=== PATIENT | male | born 1950 | race Caucasian/White ===

== ENCOUNTER 2020-02-17 13:36 | Emergency (ER) | payer MEDICARE, OTHER ==
[2020-02-17 13:47] VITALS: RESP 18; TEMP 98.7
[2020-02-17] MEDS ORDERED: SODIUM CHLORIDE 0.9% 1,000 ML IV ONE (14:27)
[2020-02-17] MEDS ORDERED: SODIUM CHLORIDE 0.9% 1,000 ML IV STA (14:27)
[2020-02-17 14:55] LABS: Basophils # (A) 0.1 k/uL (0-0.2); Basophils % (A) 1 %; Eosinophils # (A) 0.1 k/uL (0-0.7); Eosinophils % (A) 2 %; HCT 47.5 % (39.0-53.0); HGB 15.4 gm/dL (13.0-17.5); Lymphocytes # (A) 1.5 k/uL (1.0-4.8); Lymphocytes % (A) 22 %; MCH 30.7 pg (25.0-35.0); MCHC 32.4 g/dL (31.0-37.0); MCV 94.9 fL (80.0-100.0); Mean Platelet Volume 9.3; Monocytes # (A) 0.6 k/uL (0-1.0); Monocytes % (A) 8 %; Neutrophils # (A) 4.7 k/uL (1.3-7.7); Neutrophils % (A) 66 %; Platelet Count 230 k/uL (150-450); RDW 12.1 % (11.5-15.5); WBC 7.1 k/uL (3.8-10.6)
[2020-02-17 15:07] LABS: Calcium 9.8 mg/dL (8.4-10.2); Carbamazepine (Tegretol) 7.3 ug/mL; Magnesium 2.7 mg/dL (1.6-2.3); Potassium 4.9 mmol/L (3.5-5.1); Total Bilirubin 0.4 mg/dL (0.2-1.3); Total Protein 8.3 g/dL (6.3-8.2)
[2020-02-17 15:09] LABS: Valproic Acid (Depakene) 71.4 ug/mL
[2020-02-17 15:11] LABS: Prothrombin Time 9.9 sec (9.0-12.0)
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
--- NOTE | 2020-02-17 15:21 | XR ---
EXAMINATION TYPE: XR chest 2V DATE OF EXAM: 02/17/2020 COMPARISON: None HISTORY: 69 year-old male altered mental status, confusion TECHNIQUE: AP and lateral views FINDINGS: The cardiomediastinal silhouette, aorta, and pulmonary vasculature are within normal limits. Lungs an d pleural spaces are clear. IMPRESSION: No acute cardiopulmonary process.
--- NOTE | 2020-02-17 15:55 | CT ---
EXAMINATION TYPE: CT brain wo con DATE OF EXAM: 02/17/2020 COMPARISON: None HISTORY: ams, weakness, confusion CT DLP: 1162.4 mGycm Automated exposure control for dose reduction was used. FINDINGS: There is no acute intracranial hemorrhage, mass effect, or midline shift identified. The ventricles and sulci are within normal limits in size. The globes are intact and the visualized sinuses are josue ar. No acute hemorrhage or mass effect. Faint periventricular low attenuation likely in the basis of remote microvascular ischemia. IMPRESSION: No acute intracranial hemorrhage, mass effect, or midline shift is seen. If there is concern for acut e intracranial ischemia correlate with MRI as clinically warranted.
[2020-02-17 16:13] LABS: Appearance,Urine Clear (Clear); Bilirubin,Urine Negative (Negative); Blood,Urine Negative (Negative); Color,Urine Yellow; Glucose,Urine (UA) Negative (Negative); Ketones,Urine 1+ (Negative); Leukocyte Esterase,Urine Negative (Negative); Nitrite,Urine Negative (Negative); PH, Urine 5.5 (5.0-8.0); Protein,Urine Trace (Negative); Specific Gravity,Urine 1.019 (1.001-1.035); Urobilinogen,Urine <2.0 mg/dL (<2.0)
[2020-02-17 16:25] LABS: Amphetamine Screen,Urine Not Detected (NotDetected); Barbiturate Screen,Urine Detected (NotDetected); Benzodiazepines Screen,Urine Not Detected (NotDetected); Cocaine Screen,Urine Not Detected (NotDetected); Methadone Screen, Urine Not Detected (NotDetected); Opiate Screen,Urine Not Detected (NotDetected); Oxycodone Screen, Urine Not Detected (NotDetected); Phencyclidine Screen,Urine Not Detected (NotDetected); Tricyclic Antidepressant,Urine Not Detected (NotDetected); Urn Cannabinoid Scrn Not Detected (NotDetected)
[2020-02-17 17:43] VITALS: BP 141/78; PULSE 80
== END 2020-02-17 17:42 | disposition home or self-care (01) ==
LOC: EC 13:36
DX: R44.1 Visual hallucinations (principal); R44.0 Auditory hallucinations; G40.909 Epilepsy, unspecified, not intractable, without status epilepticus; R41.82 Altered mental status, unspecified; R79.89 Other specified abnormal findings of blood chemistry; R82.4 Acetonuria; R78.1 Finding of opiate drug in blood; Z87.891 Personal history of nicotine dependence; G20 Parkinson's disease
CPT/HCPCS: 36415; 70450; 71046; 80053; 80156; 80164; 80306; 81003; 82140; 82550; 83735; 84484; 85025; 85610; 85730; 93005; 96360; 96361; 99285

== ENCOUNTER 2023-06-25 14:06 | Observation (INO) | payer MEDICARE, OTHER ==
--- NOTE | 2023-06-25 14:23 | ED ---
Weakness HPI - General Chief complaint: Weakness Stated complaint: weakness Time Seen by Provider: 06/25/23 14:14 Source: patient, EMS, RN notes reviewed Mode of arrival: EMS Limitations: no limitations - History of Present Illness Initial comments: 73-year-old male with a history of Parkinson's disease and seizure disorder who apparently had forgotten he was to see his doctor today was taken by family was demonstrating generalized weakness and unsteady gait with increased tremors he did apparently fall but no injury reported he also nausea and vomiting yesterday none today no overt complaints of head neck or back pain no fevers chills or sweats reported on arrival here he had 99.0 temperature. Patient denies any decrease oral intake. MD Complaint: generalized weakness - Related Data Home Medications Medication Instructions Recorded Confirmed Atorvastatin [Lipitor] 20 mg PO HS 06/25/23 06/25/23 Carbidopa-Levodopa 10-100 mg 1 tab PO TID@0900,1400,1900 06/25/23 06/25/23 [Sinemet 10-100] Divalproex [Depakote] 250 mg PO DAILY@1400 06/25/23 06/25/23 Divalproex [Depakote] 500 mg PO BID@0900,1900 06/25/23 06/25/23 Gabapentin [Neurontin] 300 mg PO HS 06/25/23 06/25/23 Primidone [Mysoline] 50 mg PO DAILY@1900 06/25/23 06/25/23 Propranolol HCl [Propranolol HCl 160 mg PO DAILY@0900 06/25/23 06/25/23 ER] QUEtiapine FUMARATE [SEROquel] 25 mg PO HS 06/25/23 06/25/23 Ubidecarenone [Co Q-10] 400 mg PO HS 06/25/23 06/25/23 carBAMazepine [carBAMazepine ER] 400 mg PO BID@0900,1700 06/25/23 06/25/23 lisinopriL [Zestril] 10 mg PO HS 06/25/23 06/25/23 rOPINIRole HCL [Requip] 0.25 mg PO BID@0900,1900 06/25/23 06/25/23 Allergies Allergy/AdvReac Type Severity Reaction Status Date / Time No Known Allergies Allergy Verified 06/25/23 16:18 Review of Systems ROS Statement: Those systems with pertinent positive or pertinent negative responses have been documented in the HPI. ROS Other: All systems not noted in ROS Statement are negative. Past Medical History Past Medical History: Seizure Disorder Additional Past Medical History / Comment(s): Prkinsons, History of Any Multi-Drug Resistant Organisms: None Reported Past Surgical History: No Surgical Hx Reported Past Psychological History: No Psychological Hx Reported Past Alcohol Use History: None Reported Past Drug Use History: None Reported General Exam - General Exam Comments Initial Comments: This is a well-developed thin appearing male who is awake alert oriented 4 he does demonstrate tremors consistent with his Parkinson's diagnosis Limitations: no limitations General appearance: alert, in no apparent distress Head exam: Present: atraumatic, normocephalic, normal inspection Eye exam: Present: normal appearance, PERRL, EOMI. Absent: scleral icterus, conjunctival injection, periorbital swelling ENT exam: Present: mucous membranes dry Neck exam: Present: normal inspection, full ROM, other (No genitourinary or bruits). Absent: tenderness, meningismus, lymphadenopathy Respiratory exam: Present: normal lung sounds bilaterally. Absent: respiratory distress, wheezes, rales, rhonchi, stridor Cardiovascular Exam: Present: regular rate, normal rhythm, normal heart sounds. Absent: systolic murmur, diastolic murmur, rubs, gallop, clicks GI/Abdominal exam: Present: soft, normal bowel sounds. Absent: distended, tenderness, guarding, rebound, rigid Extremities exam: Present: normal inspection, full ROM, normal capillary refill. Absent: tenderness, pedal edema, joint swelling, calf tenderness Back exam: Present: normal inspection Neurological exam: Present: alert, oriented X3, CN II-XII intact, other (Tremors noted consistent with the Parkinson's diagnosis) Psychiatric exam: Present: normal affect, normal mood Skin exam: Present: warm, dry, intact, normal color. Absent: rash Course Vital Signs 06/25/23 06/25/23 14:12 18:58 Temperature 99.0 F Pulse Rate 70 78 Respiratory 18 20 Rate Blood Pressure 163/83 137/63 O2 Sat by Pulse 94 L 93 L Oximetry EKG Findings - EKG Results: EKG: interpreted by ERMD (EKG interpreted by me normal sinus rhythm at 60. Interval 194 QRS duration 1025 daily since QTC 390/[address]-T wave change s) Medical Decision Making - Medical Decision Making I did discuss findings with the patient also with family members were present patient and family are uncomfortable going home at this point patient will be admitted with neurological consultation I did discuss the case with Nick fung for Dr. Ingram pt. sent in by a medical professional or institution (, [facility], BIOPHARMACEUTICAL REP, urgent care, hospital, or [facility]...) When possible be specific @ -No Did you speak to anyone other than the patient for history (EMS, parent, family, police, friend...)? What history was obtained from this source @ -Past personal as well as family Did you review nursing and triage notes (agree or disagree)? Why? @ -I reviewed and agree with nursing and triage notes Were old charts reviewed (outside hosp., previous admission, EMS record, old EKG, old radiological studies, urgent care reports/EKG's, [facility] records)? Report findings @ - old charts were reviewed Differential Diagnosis (chest pain, altered mental status, abdominal pain women, abdominal pain men, vaginal bleeding, weakness, fever, dyspnea, syncope, headache, dizziness, GI bleed, back pain, seizure, CVA, palpatations, mental health, musculoskeletal)? @ -Weakness, dehydration, Parkinson's disease exacerbation EKG interpreted by me (3pts min.). @ -As above normal sinus rhythm seen on EKG this was interpreted by me ventricular rate 69 194 QRS duration 105 daily since QTC 390/409 X-rays interpreted by me (1pt min.). @ -Interpreted by me no acute process CT interpreted by me (1pt min.). @ -Interpreted by me no acute process U/S interpreted by me (1pt. min.). @ -None done What testing was considered but not performed or refused? (CT, X-rays, U/S, labs)? Why? @ -None What meds were considered but not given or refused? Why? @ -None Did you discuss the management of the patient with other professionals (professionals i.e. , [facility], BIOPHARMACEUTICAL REP, lab, RT, psych nurse, protective services social worker, mail machine operator, teacher, senior grants officer, pillowcase cutter)? Give summary @ -Nick fung for Dr. Hamilton Was smoking cessation discussed for >3mins.? @ -No Was critical care preformed (if so, how long)? @ -No Were there social determinants of health that impacted care today? How? (Homelessness, low income, unemployed, alcoholism, drug addiction, transportation, low edu. Level, literacy, decrease access to med. care, [facility], rehab)? @ -No Was there de-escalation of care discussed even if they declined (Discuss DNR or withdrawal of care, Hospice)? DNR status @ -No What co-morbidities impacted this encounter? (DM, HTN, Smoking, COPD, CAD, Cancer, CVA, ARF, Chemo, Hep., AIDS, mental health diagnosis, sleep apnea, morbid obesity)? @ -Or concerns disease Was patient admitted / discharged? Hospital course, mention meds given and route, prescriptions, significant lab abnormalities, going to OR and other pertinent info. @ -hospital course was admitted for IV fluids Undiagnosed new problem with uncertain prognosis? @ -No Drug Therapy requiring intensive monitoring for toxicity (Heparin, Nitro, Insulin, Cardizem)? @ -No Were any procedures done? @ -No Diagnosis/symptom? @ -Dehydration, weakness, Parkinson's disease Acute, or Chronic, or Acute on Chronic? @ -Acute on chronic] Uncomplicated (without systemic symptoms) or Complicated (systemic symptoms)? @ -Applicator Side effects of treatment? @ -No Exacerbation, Progression, or Severe Exacerbation? @ -Masturbation Poses a threat to life or bodily function? How? (Chest pain, [place], [place], pneumonia, PE, COPD, DKA, ARF, appy, cholecystitis, CVA, Diverticulitis, Homicidal, Suicidal, threat to staff... and all critical care pts) @ -No - Lab Data Result diagrams: 06/25/23 14:25 06/25/23 14:25 Lab Results 06/25/23 06/25/23 06/25/23 Range/Units 14:25 14:25 14:25 WBC 7.7 (3.8-10.6) k/uL RBC 4.60 (4.30-5.90) m/uL Hgb 15.1 (13.0-17.5) gm/dL Hct 44.3 (39.0-53.0) % MCV 96.1 (80.0-100.0) fL MCH 32.7 (25.0-35.0) pg MCHC 34.0 (31.0-37.0) g/dL RDW 12.7 (11.5-15.5) % Plt Count 213 (150-450) k/uL MPV 8.7 Neutrophils % 70 % Lymphocytes % 19 % Monocytes % 9 % Eosinophils % 1 % Basophils % 0 % Neutrophils # 5.4 (1.3-7.7) k/uL Lymphocytes # 1.5 (1.0-4.8) k/uL Monocytes # 0.7 (0-1.0) k/uL Eosinophils # 0.1 (0-0.7) k/uL Basophils # 0.0 (0-0.2) k/uL Sodium 139 (137-145) mmol/L Potassium 4.3 (3.5-5.1) mmol/L Chloride 101 (98-107) mmol/L Carbon Dioxide 27 (22-30) mmol/L Anion Gap 11 mmol/L BUN 10 (9-20) mg/dL Creatinine 0.85 (0.66-1.25) mg/dL Est GFR (CKD-EPI)AfAm >90 (>60 ml/min/1.73 sqM) Est GFR (CKD-EPI)NonAf 87 (>60 ml/min/1.73 sqM) Glucose 105 H (74-99) mg/dL Calcium 9.4 (8.4-10.2) mg/dL Magnesium 2.1 (1.6-2.3) mg/dL Total Bilirubin 0.5 (0.2-1.3) mg/dL AST 27 (17-59) U/L ALT 11 (4-49) U/L Alkaline Phosphatase 73 (38-126) U/L Creatine Kinase 141 (55-170) U/L Troponin I <0.012 (0.000-0.034) ng/mL Total Protein 7.1 (6.3-8.2) g/dL Albumin 4.0 (3.5-5.0) g/dL Valproic Acid ug/mL 06/25/23 Range/Units 17:35 WBC (3.8-10.6) k/uL RBC (4.30-5.90) m/uL Hgb (13.0-17.5) gm/dL Hct (39.0-53.0) % MCV (80.0-100.0) fL MCH (25.0-35.0) pg MCHC (31.0-37.0) g/dL RDW (11.5-15.5) % Plt Count (150-450) k/uL MPV Neutrophils % % Lymphocytes % % Monocytes % % Eosinophils % % Basophils % % Neutrophils # (1.3-7.7) k/uL Lymphocytes # (1.0-4.8) k/uL Monocytes # (0-1.0) k/uL Eosinophils # (0-0.7) k/uL Basophils # (0-0.2) k/uL Sodium (137-145) mmol/L Potassium (3.5-5.1) mmol/L Chloride (98-107) mmol/L Carbon Dioxide (22-30) mmol/L Anion Gap mmol/L BUN (9-20) mg/dL Creatinine (0.66-1.25) mg/dL Est GFR (CKD-EPI)AfAm (>60 ml/min/1.73 sqM) Est GFR (CKD-EPI)NonAf (>60 ml/min/1.73 sqM) Glucose (74-99) mg/dL Calcium (8.4-10.2) mg/dL Magnesium (1.6-2.3) mg/dL Total Bilirubin (0.2-1.3) mg/dL AST (17-59) U/L ALT (4-49) U/L Alkaline Phosphatase (38-126) U/L Creatine Kinase (55-170) U/L Troponin I (0.000-0.034) ng/mL Total Protein (6.3-8.2) g/dL Albumin (3.5-5.0) g/dL Valproic Acid 65.0 ug/mL - Radiology Data Interpreted by me: Computed tomography scan interpreted by me no acute process x-ray no acute process also interpreted by me Disposition Clinical Impression: Weakness, Dehydration, Parkinsons disease Disposition: ADMITTED IP TO THIS [facility] Condition: Stable Referrals: Medhat Sheffield DO [Primary Care Provider] - 1-2 days Decision Date: 06/25/23 Decision Time: 19:00
[2023-06-25 14:32] LABS: Basophils % (A) 0 %; Eosinophils # (A) 0.1 k/uL (0-0.7); Eosinophils % (A) 1 %; HCT 44.3 % (39.0-53.0); HGB 15.1 gm/dL (13.0-17.5); Lymphocytes # (A) 1.5 k/uL (1.0-4.8); Lymphocytes % (A) 19 %; MCH 32.7 pg (25.0-35.0); MCV 96.1 fL (80.0-100.0); Mean Platelet Volume 8.7; Monocytes # (A) 0.7 k/uL (0-1.0); Monocytes % (A) 9 %; Neutrophils # (A) 5.4 k/uL (1.3-7.7); Neutrophils % (A) 70 %; Platelet Count 213 k/uL (150-450); RDW 12.7 % (11.5-15.5); WBC 7.7 k/uL (3.8-10.6)
[2023-06-25 14:46] LABS: ALT 11 U/L (4-49); AST 27 U/L (17-59); African American GFR (CKD) >90 (>60 ml/min/1.73 sqM); Alkaline Phosphatase 73 U/L (38-126); Anion Gap 11 mmol/L; Blood Urea Nitrogen 10 mg/dL (9-20); Calcium 9.4 mg/dL (8.4-10.2); Carbon Dioxide 27 mmol/L (22-30); Chloride 101 mmol/L (98-107); Creatine Kinase 141 U/L (55-170); Glucose 105 mg/dL (74-99); Magnesium 2.1 mg/dL (1.6-2.3); Non-African American GFR(CKD) 87 (>60 ml/min/1.73 sqM); Potassium 4.3 mmol/L (3.5-5.1); Sodium 139 mmol/L (137-145); Total Bilirubin 0.5 mg/dL (0.2-1.3); Total Protein 7.1 g/dL (6.3-8.2)
--- NOTE | 2023-06-25 14:57 | CT ---
EXAMINATION TYPE: CT brain wo con DATE OF EXAM: 06/25/2023 COMPARISON: 02/17/2020 HISTORY: Altered mental status. CT DLP: 1307.4 mGycm Automated exposure control for dose reduction was used. FINDINGS: There is extensive artifact limiting assessment for subtle hemorrhage. Particularly in the posterior fossa and temporal lobes. Grossly no sizable acute intraparenchymal hemorrhage. Mild to moderate generalized degenerative change with hypoattenuation in the white matter compatible with remote ischemic white matter change. Calvarium intact. Craniocervical junction maintained. IMPRESSION: LIMITED EXAM DUE TO ARTIFACT DEMONSTRATES NO DEFINITE ACUTE INTRACRANIAL HEMORRHAGE OR MASS EFFECT.
--- NOTE | 2023-06-25 14:59 | XR ---
EXAMINATION TYPE: XR chest 2V DATE OF EXAM: 06/25/2023 COMPARISON: 02/17/2020 TECHNIQUE: PA and lateral views submitted. HISTORY: Weakness FINDINGS: The lungs are clear and there is no pneumothorax, pleural effusion, or focal pneumonia. Heart size normal and no overt failure. Limited inspiration. Degenerative changes of the spine. AC joint arthrop athy. Correlate for COPD. IMPRESSION: 1. No acute process.
--- NOTE | 2023-06-25 15:00 | XR ---
EXAMINATION TYPE: XR KUB DATE OF EXAM: 06/25/2023 COMPARISON: NONE HISTORY: Nausea TECHNIQUE: One view abdominal series FINDINGS: The osseous structures are intact. The bowel gas pattern is nonspecific. Lung bases are clear. Arth ropathy of the hips. Hypertrophic and degenerative change of the spine. IMPRESSION: 1. Nonspecific abdomen.
[2023-06-25] MEDS ORDERED: NALOXONE 0.4 MG/ML 1 ML VIAL IV PRN (19:58)
[2023-06-25] MEDS: SODIUM CHLORIDE 0.9% 1,000 ML IV SCH (20:33)
[2023-06-25] MEDS ORDERED: NON FORMULARY DRUG (Ubidecarenone [Co Q-10] 400 MG Capsule) PO SCH (21:00)
[2023-06-25] MEDS: QUEtiapine 25 MG TAB PO SCH (21:48)
[2023-06-25] MEDS: GABAPENTIN 300 MG CAP PO SCH (21:48)
[2023-06-25] MEDS: DIVALPROEX 500 MG TABLET.DR PO SCH (21:48)
[2023-06-25] MEDS: CARBIDOPA-LEVODOPA 10-100 MG 1 EACH TAB PO SCH (21:48)
[2023-06-25] MEDS: lisinopriL 10 MG TAB PO SCH (21:48)
[2023-06-25] MEDS: ATORVASTATIN 20 MG TAB PO SCH (21:48)
[2023-06-26] MEDS: SODIUM CHLORIDE 0.9% 1,000 ML IV SCH ×2 (05:29→17:36)
[2023-06-26] MEDS ORDERED: ACETAMINOPHEN TAB 325 MG TAB PO PRN (05:38)
[2023-06-26] MEDS: carBAMazepine 400 MG TAB.ER.12H PO SCH ×2 (08:23→17:36)
[2023-06-26] MEDS: PROPRANOLOL LA 80 MG CAP.SA.24H PO SCH (08:24)
[2023-06-26] MEDS: DIVALPROEX 500 MG TABLET.DR PO SCH ×2 (08:24→20:23)
[2023-06-26] MEDS: CARBIDOPA-LEVODOPA 10-100 MG 1 EACH TAB PO SCH ×3 (08:24→20:23)
[2023-06-26] MEDS ORDERED: CARBIDOPA-LEVODOPA 10-100 MG 1 EACH TAB PO SCH (09:00)
[2023-06-26] MEDS ORDERED: DIVALPROEX 500 MG TABLET.DR PO SCH (09:00)
[2023-06-26] MEDS ORDERED: ONDANSETRON 4 MG/2 ML VIAL IVP PRN (09:57)
--- NOTE | 2023-06-26 13:33 | P.HPIM ---
History of Present Illness H&P Date: 06/26/23 Chief Complaint: Weakness * 73-year-old gentleman with past medical history significant for Parkinson's disease, dyslipidemia, hypertension presented to the emergency department after episode of worsening gait, weakness and increase in tremors. * Per chart review patient apparently had a fall but no injuries were noted. Patient was also noted to have episode of nausea and vomiting * Workup initiated in ER included a CT brain that was negative however limited study secondary to motion artifact * Chest x-ray and KUB was obtained which was negative * Blood work obtained showed essentially normal CBC, serum chemistry within normal limits as well * Patient placed in observation unit with evaluation from. Physical therapy occupational therapy and resumption of home meds and treated with IV fluids REVIEW OF SYSTEMS: Generalized weakness, fall CONSTITUTIONAL: No fever, no malaise, no fatigue. HEENT: No recent visual problems or hearing problems. Denied any sore throat. CARDIOVASCULAR: No chest pain, orthopnea, PND, no palpitations, no syncope. PULMONARY: No shortness of breath, no cough, no hemoptysis. GASTROINTESTINAL: No diarrhea, no nausea, no vomiting, no abdominal pain. NEUROLOGICAL: No headaches, no weakness, no numbness. HEMATOLOGICAL: Denies any bleeding or petechiae. GENITOURINARY: Denies any burning micturition, frequency, or urgency. MUSCULOSKELETAL/RHEUMATOLOGICAL: Denies any joint pain, swelling, or any muscle pain. ENDOCRINE: Denies any polyuria or polydipsia. PHYSICAL EXAMINATION: GENERAL: The patient is alert and oriented x3, not in any acute distress. Well developed, well nourished. HEENT: Pupils are round and equally reacting to light. EOMI. No scleral icterus. No conjunctival pallor. Normocephalic, atraumatic. No pharyngeal erythema. No thyromegaly. CARDIOVASCULAR: S1 and S2 present. No murmurs, rubs, or gallops. PULMONARY: Chest is clear to auscultation, no wheezing or crackles. ABDOMEN: Soft, nontender, nondistended, normoactive bowel sounds. No palpable organomegaly. MUSCULOSKELETAL: No joint swelling or deformity. EXTREMITIES: No cyanosis, clubbing, or pedal edema. NEUROLOGICAL: Gross neurological examination did not reveal any focal deficits. , Tremors noted, Past Medical History Past Medical History: Seizure Disorder Additional Past Medical History / Comment(s): Judie, History of Any Multi-Drug Resistant Organisms: None Reported Past Surgical History: No Surgical Hx Reported Past Psychological History: No Psychological Hx Reported Smoking Status: Former smoker Past Alcohol Use History: None Reported Past Drug Use History: None Reported Medications and Allergies Home Medications Medication Instructions Recorded Confirmed Type Atorvastatin [Lipitor] 20 mg PO HS 06/25/23 06/25/23 History Carbidopa-Levodopa 10-100 mg 1 tab PO TID@0900,1400,1900 06/25/23 06/25/23 History [Sinemet 10-100] Divalproex [Depakote] 250 mg PO DAILY@1400 06/25/23 06/25/23 History Divalproex [Depakote] 500 mg PO BID@0900,19006/25/23 06/25/23 History Gabapentin [Neurontin] 300 mg PO HS 06/25/23 06/25/23 History Primidone [Mysoline] 50 mg PO DAILY@1900 06/25/23 06/25/23 History Propranolol HCl [Propranolol HCl 160 mg PO DAILY@0900 06/25/23 06/25/23 History ER] QUEtiapine FUMARATE [SEROquel] 25 mg PO HS 06/25/23 06/25/23 History Ubidecarenone [Co Q-10] 400 mg PO HS 06/25/23 06/25/23 History carBAMazepine [carBAMazepine ER] 400 mg PO BID@0900,1700 06/25/23 06/25/23 History lisinopriL [Zestril] 10 mg PO HS 06/25/23 06/25/23 History rOPINIRole HCL [Requip] 0.25 mg PO BID@0900,1900 06/25/23 06/25/23 History Allergies Allergy/AdvReac Type Severity Reaction Status Date / Time No Known Allergies Allergy Verified 06/25/23 16:18 Physical Exam Vitals: Vital Signs Temp Pulse Pulse Resp BP BP Pulse Ox 06/26/23 07:00 98.0 F 65 17 110/52 93 L 06/26/23 02:17 98.6 F 77 17 144/73 96 06/25/23 22:01 97.5 F L 71 15 155/74 98 06/25/23 20:00 70 20 144/79 95 06/25/23 18:58 78 20 137/63 93 L 06/25/23 14:12 99.0 F 70 18 163/83 94 L Intake and Output 06/25/23 06/26/23 06/26/23 22:59 06:59 14:59 Other: Voiding Method Toilet Urinal # Voids 1 2 Weight 72.575 kg Results CBC & Chem 7: 06/25/23 14:25 06/25/23 14:25 Labs: Abnormal Lab Results - Last 24 Hours (Table) 06/25/23 Range/Units 14:25 Glucose 105 H (74-99) mg/dL Thrombosis Risk Factor Assmnt - DVT/VTE Prophylaxis DVT/VTE Prophylaxis: Mechanical Prophylaxis ordered Assessment and Plan Assessment: Assessment and plan * Parkinson's disease with progressive weakness * Essential hypertension * Hyperlipidemia * History of falls * Patient placed in observation unit, physical therapy occupational therapy c onsulted * Continue patient with fluid resuscitation normal saline 100 mL per hour * Home medications reviewed and reconciled * Continue patient on fall precautions * Pressure neurology evaluation due to worsening Parkinson symptoms * CODE STATUS is full code
[2023-06-26] MEDS: DIVALPROEX 250 MG TABLET.DR PO SCH (14:34)
[2023-06-26] MEDS: lisinopriL 10 MG TAB PO SCH (20:23)
[2023-06-26] MEDS: GABAPENTIN 300 MG CAP PO SCH (20:23)
[2023-06-26] MEDS: QUEtiapine 25 MG TAB PO SCH (20:23)
[2023-06-26] MEDS: ATORVASTATIN 20 MG TAB PO SCH (20:23)
[2023-06-26] MEDS: PRIMIDONE 50 MG TAB PO SCH (20:23)
--- NOTE | 2023-06-27 00:51 | P.PN ---
Subjective Progress Note Date: 06/27/23 * 73-year-old gentleman with past medical history significant for Parkinson's disease, dyslipidemia, hypertension presented to the emergency department after episode of worsening gait, weakness and increase in tremors. * Per chart review patient apparently had a fall but no injuries were noted. Patient was also noted to have episode of nausea and vomiting * Workup initiated in ER included a CT brain that was negative however limited study secondary to motion artifact * Chest x-ray and KUB was obtained which was negative * Blood work obtained showed essentially normal CBC, serum chemistry within normal limits as well * 06/27/23 : Patient seen and evaluated bedside, mentation has improved continue to have weakness, hematology sensitivity shows normal WBC count normal hemoglobin and platelet count dropped to 115. Serum chemistry essentially within normal limits CRP minimally elevated at 2.20. We will get physical therapy evaluation secondary to gait instability Objective - Vital Signs Vital signs: Vital Signs Temp 98.6 F 06/26/23 18:52 Pulse 71 06/26/23 18:52 Resp 16 06/26/23 18:52 BP 137/73 06/26/23 18:52 Pulse Ox 95 06/26/23 18:52 FiO2 Intake & Output 06/26/23 06/26/23 06/27/23 06:59 18:59 06:59 Intake Total 591 Balance 591 Weight 72.575 kg Intake: Oral 591 Other: Voiding Method Toilet Toilet Urinal # Voids 2 1 0 - Exam PHYSICAL EXAMINATION: GENERAL: The patient is alert and oriented x3, not in any acute distress. Well developed, well nourished. HEENT: Pupils are round and equally reacting to light. EOMI. No scleral icterus. No conjunctival pallor. Normocephalic, atraumatic. No pharyngeal erythema. No thyromegaly. CARDIOVASCULAR: S1 and S2 present. No murmurs, rubs, or gallops. PULMONARY: Chest is clear to auscultation, no wheezing or crackles. ABDOMEN: Soft, nontender, nondistended, normoactive bowel sounds. No palpable organomegaly. MUSCULOSKELETAL: No joint swelling or deformity. EXTREMITIES: No cyanosis, clubbing, or pedal edema. NEUROLOGICAL: Gross neurological examination did not reveal any focal deficits. , Tremors noted, - Labs CBC & Chem 7: 06/27/23 06:06 06/27/23 06:06 Assessment and Plan Assessment: Assessment and plan * Parkinson's disease with progressive weakness * Essential hypertension * Hyperlipidemia * History of falls * Thrombocytopenia * Patient placed in observation unit, physical therapy occupational therapy consulted * Patient noted to be dehydrated resuscitated with normal saline IV fluid * In regards to history of hypertension continue lisinopril propranolol * Home medications reviewed and reconciled * Continue patient on fall precautions * Pressure neurology evaluation due to worsening Parkinson symptoms * CODE STATUS is full code
[2023-06-27] MEDS: SODIUM CHLORIDE 0.9% 1,000 ML IV SCH ×2 (02:01→12:40)
[2023-06-27] MEDS: CARBIDOPA-LEVODOPA 10-100 MG 1 EACH TAB PO SCH ×3 (09:04→18:00)
[2023-06-27] MEDS: PROPRANOLOL LA 80 MG CAP.SA.24H PO SCH (09:04)
[2023-06-27] MEDS: carBAMazepine 400 MG TAB.ER.12H PO SCH ×2 (09:04→18:00)
[2023-06-27] MEDS: DIVALPROEX 500 MG TABLET.DR PO SCH ×2 (09:09→18:01)
[2023-06-27 10:03] LABS: HCT 41.6 % (39.6-50.0); MCH 31.5 pg (27.0-32.0); MCHC 31.3 d/dL (32.0-37.0); MCV 100.7 FL (80.0-97.0); Mean Platelet Volume 12.2 FL (9.5-12.2); NRBC Per 100 WBC 0 X 10*3/uL (0.00-0.01); Platelet Count 115 X 10*3/uL (140-440); RBC 4.13 X 10*6/uL (4.40-5.60); RDW 12.8 % (11.5-14.5); WBC 4.65 X 10*3/uL (4.50-10.00)
[2023-06-27 12:00] LABS: Blood Urea Nitrogen 17.4 mg/dL (9.0-27.0); Calcium 8.8 mg/dL (8.7-10.3); Chloride 107 mmol/L (96-109); Glucose 73 mg/dL (70-110); Potassium 4.8 mmol/L (3.5-5.5); Sodium 143 mmol/L (135-145)
[2023-06-27] MEDS: DIVALPROEX 250 MG TABLET.DR PO SCH (15:58)
[2023-06-27] MEDS: PRIMIDONE 50 MG TAB PO SCH (18:01)
[2023-06-27] MEDS: lisinopriL 10 MG TAB PO SCH (20:01)
[2023-06-27] MEDS: GABAPENTIN 300 MG CAP PO SCH (20:01)
[2023-06-27] MEDS: QUEtiapine 25 MG TAB PO SCH (20:01)
[2023-06-27] MEDS: ATORVASTATIN 20 MG TAB PO SCH (20:01)
[2023-06-27 23:10] LABS: Carbamazepine (Tegretol) 6.5 UG/ML (4.0-12.0)
[2023-06-28] MEDS: SODIUM CHLORIDE 0.9% 1,000 ML IV SCH (04:28)
[2023-06-28] MEDS: carBAMazepine 400 MG TAB.ER.12H PO SCH ×2 (09:53→17:36)
[2023-06-28] MEDS: PROPRANOLOL LA 80 MG CAP.SA.24H PO SCH (09:53)
[2023-06-28] MEDS: CARBIDOPA-LEVODOPA 10-100 MG 1 EACH TAB PO SCH ×3 (09:53→18:17)
[2023-06-28] MEDS: DIVALPROEX 500 MG TABLET.DR PO SCH ×2 (09:53→18:17)
--- NOTE | 2023-06-28 10:04 | P.CNNES ---
History of Present Illness Consult date: 06/27/23 Requesting physician: Karishma Walker Reason for Consult: Worsening Parkinson evaluate and adjust regimen History of Present Illness: Patient is a 73-year-old right-handed male who has been diagnosed with Parkinson's, follows by Dr. Hector, came to the hospital by ambulance day before yesterday on 06/25/2023 at 2:06 PM from his primary physician's office for unsteady gait. Patient tells me that he was at his doctor's appointment, when they called his name, he got up, and he fell backwards into the chair and then on the floor. He did not suffer from any injury. As per EMS flow sheet, when they arrived, patient was in care of Dr. Purcell, patient has Parkinson's and is more unsteady on his feet and weaker today. Patient mentioned that he had an upset stomach and vomited last night. Dizzy upon standing when he got out of car today while at the doctor's office for his checkup. Patient had fallen back into the car when standing, no injuries noted, nor did patient have any complaints of injuries. Patient mentioned that his Parkinson's tremors are worse. EKG shows normal sinus rhythm. Blood glucose was 112 and temperature 98.7. Blood pressure 168/87, pulse rate 70 respiration 14 saturation 94%. Blood test shows normal CBC, CMP, Depakote level is 65. EKG shows sinus rhythm. CT head was limited exam due to artifact demonstrates no definite acute intracranial hemorrhage or mass effect. I personally reviewed CT head, agree with the findings. Chest x-ray showed no acute process. KUB with nonspecific pattern. Patient states he has history of seizure disorder since he was in his 20s. It was not grand mal seizure, rather petit mal seizure. He could be talking, see bright lights and black out for about 2-3 minutes. The seizures are occurring about 2-3 times a year. Patient states that he is an ex-smoker, and used to drink alcohol when he was very young. Patient used a walking stick, although did not really use it, rather carried it. Just recently he received a walker. Review of Systems Constitutional: Reports weight loss, Denies chills, Denies fever Eyes: denies blurred vision, denies diplopia, denies pain Ears: deny: decreased hearing, ear discharge Ears, nose, mouth and throat: Denies headache (On rare occasions), Denies sore throat Cardiovascular: Denies chest pain, Denies shortness of breath Respiratory: Denies cough, Denies excessive sputum Gastrointestinal: Denies abdominal pain, Denies diarrhea, Denies nausea, Denies vomiting Musculoskeletal: Reports low back pain, Denies myalgias, Denies neck pain Integumentary: Denies pruritus, Denies rash Neurological: Reports as per HPI Psychiatric: Denies anxiety, Denies depression Endocrine: Reports weight change, Denies fatigue (Occasionally) Past Medical History Past Medical History: Seizure Disorder Additional Past Medical History / Comment(s): Prkinsons, History of Any Multi-Drug Resistant Organisms: None Reported Past Surgical History: No Surgical Hx Reported Past Psychological History: No Psychological Hx Reported Smoking Status: Former smoker Past Alcohol Use History: None Reported Past Drug Use History: None Reported Medications and Allergies Home Medications Medication Instructions Recorded Confirmed Type Atorvastatin [Lipitor] 20 mg PO HS 06/25/23 06/25/23 History Carbidopa-Levodopa 10-100 mg 1 tab PO TID@0900,1400,1900 06/25/23 06/25/23 History [Sinemet 10-100] Divalproex [Depakote] 250 mg PO DAILY@1400 06/25/23 06/25/23 History Divalproex [Depakote] 500 mg PO BID@0900,1900 06/25/23 06/25/23 History Gabapentin [Neurontin] 300 mg PO HS 06/25/23 06/25/23 History Primidone [Mysoline] 50 mg PO DAILY@1900 06/25/23 06/25/23 History Propranolol HCl [Propranolol HCl 160 mg PO DAILY@0900 06/25/23 06/25/23 History ER] QUEtiapine FUMARATE [SEROquel] 25 mg PO HS 06/25/23 06/25/23 History Ubidecarenone [Co Q-10] 400 mg PO HS 06/25/23 06/25/23 History carBAMazepine [carBAMazepine ER] 400 mg PO BID@0900,1700 06/25/23 06/25/23 History lisinopriL [Zestril] 10 mg PO HS 06/25/23 06/25/23 History rOPINIRole HCL [Requip] 0.25 mg PO BID@0900,1900 06/25/23 06/25/23 History Allergies Allergy/AdvReac Type Severity Reaction Status Date / Time No Known Allergies Allergy Verified 06/25/23 16:18 Physical Examination - Vital Signs Vital Signs: Vital Signs Temp Pulse Resp BP Pulse Ox 06/27/23 13:45 97.6 F 65 17 142/57 95 06/27/23 07:00 98.3 F 68 17 116/70 93 L 06/27/23 01:43 98.0 F 75 16 121/67 93 L 06/26/23 18:52 98.6 F 71 16 137/73 95 Intake and Output 06/27/23 06/27/23 06/27/23 06:59 14:59 22:59 Other: # Voids 1 Patient is an elderly male, very pleasant, in no acute distress. Patient is alert awake oriented to time place and person. He knows it is June and the year is 2022 and that he is in [facility]. Speech is somewhat scanning dysarthric and language functions are normal. Patient can name and repeat very well. Attention, concentration and fund of knowledge is a dequate. Detailed cognitive function testing deferred. On cranial nerve examination, pupils are equal, round and reacting to light, visual del cid are full on confrontation, with no neglect on double simultaneous stimulation. Extraocular muscles are intact with mild end gaze nystagmus. Face is symmetric, tongue protrudes to the midline. Palatal elevation and sensation normal, hearing and shoulder shrug normal, facial sensation normal. On muscle strength testing, there is no pronator drift and the strength is normal in arms and legs distally and proximally. Deep tendon reflexes are symmetric, although very hypoactive and plantars are downgoing bilaterally. Sensory to touch is equal with no neglect on double simultaneous stimulation. Cerebellar function showed moderate to severe tremor versus ataxia for [id number] testing bilaterally. Patient has positive dysdiadochokinesia. Patient has moderate ataxia for [id number] testing bilaterally. Tone and bulk of muscles normal. No tremors at rest. He has mild to moderate postural tremor. Patient uses both hands and both hands are shaking when he is talking. Gait deferred.. On general examination, there is no carotid bruit or murmur, S1-S2 audible. Chest is clear on consultation. Abdomen is soft nontender. No organomegaly, bowel sounds present. Peripheral pulses are present. No edema. Results - Laboratory Findings CBC and BMP: 06/27/23 06:06 06/27/23 06:06 Abnormal Lab Findings: Abnormal Labs 06/25/23 06/27/23 06/27/23 14:25 06:06 06:06 RBC 4.13 L MCV 100.7 H MCHC 31.3 L Plt Count 115 L Glucose 105 H C-Reactive Protein 2.20 H Assessment and Plan Assessment: * Questionable Parkinson's. Patient has more of ataxia in the upper and lower limbs rather than parkinsonism. * Significant intention and postural tremor. No tremors at rest. * Seizure disorder Plan: * Patient has significant intention tremors of the hands, which at times appears more like ataxia. Patient is on Depakote 500 mg twice a day and 250 mg in the midday. His Depakote level is 65. Depakote has obvious side effect of po stural and intention tremor. I do not believe Depakote is the right medication for him. However I do not want to make any changes in his medication regimen. I would suggest patient follow up with his neurologist and consider switching from Depakote to another medication, which does not have side effects of tremors. * Patient is on low-dose Sinemet 10/100, 1 tablet 3 times a day, which can be continued for now. I do not see any obvious parkinsonism. * Patient also has been diagnosed with seizure disorder it appears. Patient is on Tegretol-XR 400 mg twice a day. We will check the level. * It appears that patient's primary neurologist is treating him for benign tremors as well, as patient is on primidone and Inderal. These may be continued. * We will check B12, folate. Ammonia level. * Agree with patient using walker if any concern about the gait. * Neurologically, no other workup indicated. Thank you for the consult. Addendum: Tegretol level is 6.5 (4-12). Levels are therapeutic. Ammonia level is normal 15 B12 295, we will start B12 replacement. Folate 6.4. Patient will be started on folic acid 1 mg daily. Neurologically clear. Recommend patient follow up with his neurologist outpatient. Although it appears that a consultation with a movement disorder specialist will be ideal.
[2023-06-28] MEDS ORDERED: CYANOCOBALAMIN 1,000 MCG/ML 1 ML VIAL IM ONE (10:30)
[2023-06-28 10:33] LABS: HCT 39.3 % (39.6-50.0); HGB 12.7 d/dL (13.0-17.0); MCH 32.1 pg (27.0-32.0); MCHC 32.3 d/dL (32.0-37.0); MCV 99.2 FL (80.0-97.0); Mean Platelet Volume 11.7 FL (9.5-12.2); NRBC Per 100 WBC 0 X 10*3/uL (0.00-0.01); Platelet Count 187 X 10*3/uL (140-440); RBC 3.96 X 10*6/uL (4.40-5.60); RDW 12.9 % (11.5-14.5); WBC 5.01 X 10*3/uL (4.50-10.00)
[2023-06-28] MEDS: FOLIC ACID 1 MG TAB PO SCH (12:48)
--- NOTE | 2023-06-28 13:27 | P.PN ---
Subjective Progress Note Date: 06/28/23 * 73-year-old gentleman with past medical history significant for Parkinson's disease, dyslipidemia, hypertension presented to the emergency department after episode of worsening gait, weakness and increase in tremors. * Per chart review patient apparently had a fall but no injuries were noted. Patient was also noted to have episode of nausea and vomiting * Workup initiated in ER included a CT brain that was negative however limited study secondary to motion artifact * Chest x-ray and KUB was obtained which was negative * Blood work obtained showed essentially normal CBC, serum chemistry within normal limits as well * 06/27/23 : Patient seen and evaluated bedside, mentation has improved continue to have weakness, hematology sensitivity shows normal WBC count normal hemoglobin and platelet count dropped to 115. Serum chemistry essentially within normal limits CRP minimally elevated at 2.20. We will get physical therapy evaluation secondary to gait instability * 06/28/23: Patient seen and evaluated bedside. Hematology showed normal WBC count hemoglobin 12.7. Seen by neurology started on folate. Recommend outpatient follow-up with neurology. Will wait for physical therapy final recommendations will discharge disposition potential discharge within the next 24 hours Objective - Vital Signs Vital signs: Vital Signs Temp 98.4 F 06/28/23 02:57 Pulse 66 06/28/23 02:57 Resp 17 06/28/23 02:57 BP 116/60 06/28/23 02:57 Pulse Ox 95 06/28/23 02:57 FiO2 Intake & Output 06/27/23 06/28/23 06/28/23 18:59 06:59 18:59 Other: Voiding Method Toilet # Voids 1 1 - Exam PHYSICAL EXAMINATION: GENERAL: The patient is alert and oriented x3, not in any acute distress. Well developed, well nourished, generalized tremors. HEENT: Pupils are round and equally reacting to light. EOMI. No scleral icterus. No conjunctival pallor. Normocephalic, atraumatic. No pharyngeal erythema. No thyromegaly. CARDIOVASCULAR: S1 and S2 present. No murmurs, rubs, or gallops. PULMONARY: Chest is clear to auscultation, no wheezing or crackles. ABDOMEN: Soft, nontender, nondistended, normoactive bowel sounds. No palpable organomegaly. MUSCULOSKELETAL: No joint swelling or deformity. EXTREMITIES: No cyanosis, clubbing, or pedal edema. NEUROLOGICAL: Gross neurological examination did not reveal any focal deficits. , Tremors noted, - Labs CBC & Chem 7: 06/28/23 05:53 06/27/23 06:06 Labs: Abnormal Lab Results - Last 24 Hours (Table) 06/28/23 Range/Units 05:53 RBC 3.96 L (4.40-5.60) X 10*6/uL Hgb 12.7 L (13.0-17.0) d/dL Hct 39.3 L (39.6-50.0) % MCV 99.2 H (80.0-97.0) FL MCH 32.1 H (27.0-32.0) pg Assessment and Plan Assessment: Assessment and plan * Progressive weakness with tremors Parkinsonian symptom * Intention tremor/postural tremor * Seizure disorder * Essential hypertension * Hyperlipidemia * History of falls * Thrombocytopenia * Patient placed in observation unit, physical therapy occupational therapy consulted * Patient noted to be dehydrated resuscitated with normal saline IV fluid * In regards to history of hypertension continue lisinopril propranolol * In regards to antiseizure medications continue Tegretol. Started on folic acid. * In regards to tremors continue patient on Sinemet * Home medications reviewed and reconciled * Continue patient on fall precautions * Will need outpatient follow-up with neurology * CODE STATUS is full code
[2023-06-28] MEDS: DIVALPROEX 250 MG TABLET.DR PO SCH (14:53)
[2023-06-28] MEDS: PRIMIDONE 50 MG TAB PO SCH (18:17)
[2023-06-28] MEDS: GABAPENTIN 300 MG CAP PO SCH (20:42)
[2023-06-28] MEDS: lisinopriL 10 MG TAB PO SCH (20:42)
[2023-06-28] MEDS: QUEtiapine 25 MG TAB PO SCH (20:42)
[2023-06-28] MEDS: ATORVASTATIN 20 MG TAB PO SCH (20:42)
[2023-06-29] MEDS: SODIUM CHLORIDE 0.9% 1,000 ML IV SCH (03:54)
[2023-06-29] MEDS: CARBIDOPA-LEVODOPA 10-100 MG 1 EACH TAB PO SCH ×3 (08:52→18:05)
[2023-06-29] MEDS: CYANOCOBALAMIN 500 MCG TAB PO SCH (08:52)
[2023-06-29] MEDS: PROPRANOLOL LA 80 MG CAP.SA.24H PO SCH (08:53)
[2023-06-29] MEDS: DIVALPROEX 500 MG TABLET.DR PO SCH ×2 (08:53→18:05)
[2023-06-29] MEDS: carBAMazepine 400 MG TAB.ER.12H PO SCH ×2 (08:53→16:57)
[2023-06-29] MEDS: FOLIC ACID 1 MG TAB PO SCH (08:58)
[2023-06-29] MEDS: DIVALPROEX 250 MG TABLET.DR PO SCH (15:05)
--- NOTE | 2023-06-29 16:47 | P.PN ---
Progress Note - Text Progress Note Date: 06/29/23 Hospital course: * 73-year-old gentleman with past medical history significant for Parkinson's di sease, dyslipidemia, hypertension presented to the emergency department after episode of worsening gait, weakness and increase in tremors. * Per chart review patient apparently had a fall but no injuries were noted. Patient was also noted to have episode of nausea and vomiting * Workup initiated in ER included a CT brain that was negative however limited study secondary to motion artifact * Chest x-ray and KUB was obtained which was negative * Blood work obtained showed essentially normal CBC, serum chemistry within normal limits as well * 06/27/23 : Patient seen and evaluated bedside, mentation has improved continue to have weakness, hematology sensitivity shows normal WBC count normal hemoglobin and platelet count dropped to 115. Serum chemistry essentially within normal limits CRP minimally elevated at 2.20. We will get physical therapy evaluation secondary to gait instability * 06/28/23: Patient seen and evaluated bedside. Hematology showed normal WBC count hemoglobin 12.7. Seen by neurology started on folate. Recommend outpatient follow-up with neurology. Will wait for physical therapy final recommendations will discharge disposition potential discharge within the next 24 hours 07/09/2023: I assumed care of the patient today. Sitting up in a chair. Eating lunch. Does feel his tremors are better. This tremor still present at baseline. Patient's family did also licensed clinical social worker for rehab. Process started. Patient is being treated for movement disorder. Was seen by Dr. Danielle from neurology. No change in medications. He wants the patient to follow-up with his neurologist. Active Medications Acetaminophen (Acetaminophen Tab 325 Mg Tab) 650 mg PO Q6HR PRN PRN Reason: Fever and/ or Pain Last Admin: 06/26/23 05:45 Dose: 650 mg Atorvastatin Calcium (Atorvastatin 20 Mg Tab) 20 mg PO HS [facility] Last Admin: 06/28/23 20:42 Dose: 20 mg Carbamazepine (Carbamazepine 400 Mg Tab.Er.12h) 400 mg PO BID@0900,1700 [facility] Last Admin: 06/29/23 08:53 Dose: 400 mg Carbidopa/Levodopa (Carbidopa-Levodopa 10-100 Mg 1 Each Tab) 1 each PO TID@0900,1400,1900 [facility] Last Admin: 06/29/23 15:05 Dose: 1 each Cyanocobalamin (Cyanocobalamin 500 Mcg Tab) 1,000 mcg PO DAILY [facility] Last Admin: 06/29/23 08:52 Dose: 1,000 mcg Divalproex Sodium (Divalproex 250 Mg Tablet.) 250 mg PO DAILY@1400 [facility] Last Admin: 06/29/23 15:05 Dose: 250 mg Divalproex Sodium (Divalproex 500 Mg Tablet.) 500 mg PO BID@0900,1900 [facility] Last Admin: 06/29/23 08:53 Dose: 500 mg Folic Acid (Folic Acid 1 Mg Tab) 1 mg PO DAILY [facility] Last Admin: 06/29/23 08:58 Dose: 1 mg Gabapentin (Gabapentin 300 Mg Cap) 300 mg PO [facility] Last Admin: 06/28/23 20:42 Dose: 300 mg Sodium Chloride (Saline 0.9%) 1,000 mls @ 50 mls/hr IV .Q20H [facility] Last Admin: 06/29/23 03:54 Dose: Not Given Lisinopril (Lisinopril 10 Mg Tab) 10 mg PO [facility] Last Admin: 06/28/23 20:42 Dose: 10 mg Naloxone HCl (Naloxone 0.4 Mg/Ml 1 Ml Vial) 0.2 mg IV Q2M PRN PRN Reason: Opioid Reversal Ondansetron HCl (Ondansetron 4 Mg/2 Ml Vial) 4 mg IVP Q8HR PRN PRN Reason: Nausea And Vomiting Primidone (Primidone 50 Mg Tab) 50 mg PO DAILY@1900 [facility] Last Admin: 06/28/23 18:17 Dose: 50 mg Propranolol HCl (Propranolol La 80 Mg Cap.Sa.24h) 160 mg PO DAILY@0900 [facility] Last Admin: 06/29/23 08:53 Dose: 160 mg Quetiapine Fumarate (Quetiapine 25 Mg Tab) 25 mg PO [facility] Last Admin: 06/28/23 20:42 Dose: 25 mg Ropinirole HCl (Ropinirole Hcl 0.25 Mg Tab) 0.25 mg PO BID@0900,1900 [facility] Last Admin: 06/29/23 08:52 Dose: 0.25 mg On examination: VITAL SIGNS: [98.2, 67, 22, 1 56 x 85, 97% room air] GENERAL APPEARANCE: Sitting upon a chair, with coarse tremors and some jerking movements. HEENT: Normal external appearance of nose and ear. Oral cavity normal EYES: Pupils equal. Conjunctiva normal. NECK: JVD not raised. Mass not palpable. RESPIRATORY: Respiratory effort normal. Lungs clear to auscultation. CARDIOVASCULAR: First and second sounds normal. No edema. ABDOMEN: Soft. Liver and spleen not palpable. No tenderness. No mass palpable. PSYCHIATRY: Alert and oriented x3. Mood and affect normal. NEUROLOGICAL: Jerking tremors. Slow speech. This finding difficulty with words. INVESTIGATIONS, reviewed in the clinical context: June 28: White count 5.01 hemoglobin 12.7 platelets 187 sodium 143 potassium 4.8 creatinine 1.0 CRP 2.2 vitamin B12 295 folate 6.4 valproic acid 65.0 carbamazepine 6.5 Computed tomography scan brain: Limited exam. Generalized degenerative changes. Assessment and plan * Progressive weakness with tremors , of movement disorder.-Parkinson-like disorder: Sinemet Inderal LA. Requip primidone * Seizure disorder-Tegretol, Depakote * Essential hypertension-lisinopril, propranolol * Hyperlipidemia-Lipitor * falls, from acute medical debility. * Thrombocytopenia-recovered -Peripheral neuropathy: Neurontin Discussed with patient. slate worker involved in rehab placement. PTOT on the case.
[2023-06-29] MEDS: PRIMIDONE 50 MG TAB PO SCH (18:05)
[2023-06-29] MEDS: ATORVASTATIN 20 MG TAB PO SCH (20:49)
[2023-06-29] MEDS: lisinopriL 10 MG TAB PO SCH (20:49)
[2023-06-29] MEDS: QUEtiapine 25 MG TAB PO SCH (20:49)
[2023-06-29] MEDS: GABAPENTIN 300 MG CAP PO SCH (20:49)
[2023-06-30] MEDS: CARBIDOPA-LEVODOPA 10-100 MG 1 EACH TAB PO SCH ×3 (08:49→18:11)
[2023-06-30] MEDS: CYANOCOBALAMIN 500 MCG TAB PO SCH (08:49)
[2023-06-30] MEDS: DIVALPROEX 500 MG TABLET.DR PO SCH ×2 (08:49→18:11)
[2023-06-30] MEDS: PROPRANOLOL LA 80 MG CAP.SA.24H PO SCH (08:49)
[2023-06-30] MEDS: carBAMazepine 400 MG TAB.ER.12H PO SCH ×2 (08:50→17:24)
[2023-06-30] MEDS: FOLIC ACID 1 MG TAB PO SCH (08:50)
[2023-06-30] MEDS: DIVALPROEX 250 MG TABLET.DR PO SCH (14:06)
[2023-06-30] MEDS: PRIMIDONE 50 MG TAB PO SCH (18:14)
[2023-06-30] MEDS: ATORVASTATIN 20 MG TAB PO SCH (19:34)
[2023-06-30] MEDS: GABAPENTIN 300 MG CAP PO SCH (19:34)
[2023-06-30] MEDS: lisinopriL 10 MG TAB PO SCH (19:34)
[2023-06-30] MEDS: QUEtiapine 25 MG TAB PO SCH (19:34)
--- NOTE | 2023-06-30 20:00 | P.PN ---
Progress Note - Text Progress Note Date: 06/30/23 Hospital course: * 73-year-old gentleman with past medical history significant for Parkinson's di sease, dyslipidemia, hypertension presented to the emergency department after episode of worsening gait, weakness and increase in tremors. * Per chart review patient apparently had a fall but no injuries were noted. Patient was also noted to have episode of nausea and vomiting * Workup initiated in ER included a CT brain that was negative however limited study secondary to motion artifact * Chest x-ray and KUB was obtained which was negative * Blood work obtained showed essentially normal CBC, serum chemistry within normal limits as well * 06/27/23 : Patient seen and evaluated bedside, mentation has improved continue to have weakness, hematology sensitivity shows normal WBC count normal hemoglobin and platelet count dropped to 115. Serum chemistry essentially within normal limits CRP minimally elevated at 2.20. We will get physical therapy evaluation secondary to gait instability * 06/28/23: Patient seen and evaluated bedside. Hematology showed normal WBC count hemoglobin 12.7. Seen by neurology started on folate. Recommend outpatient follow-up with neurology. Will wait for physical therapy final recommendations will discharge disposition potential discharge within the next 24 hours 06/29/2023: I assumed care of the patient today. Sitting up in a chair. Eating lunch. Does feel his tremors are better. This tremor still present at baseline. Patient's family did also drug abuse social worker for rehab. Process started. Patient is being treated for movement disorder. Was seen by Dr. Danielle from neurology. No change in medications. He wants the patient to follow-up with his neurologist. 06/30/2023: Sitting up. Eating his meals. Tremors present. Discussed with showcase maker. Looking at rehab placement. Active Medications Acetaminophen (Acetaminophen Tab 325 Mg Tab) 650 mg PO Q6HR PRN PRN Reason: Fever and/ or Pain Last Admin: 06/26/23 05:45 Dose: 650 mg Atorvastatin Calcium (Atorvastatin 20 Mg Tab) 20 mg PO HS [facility] Last Admin: 06/30/23 19:34 Dose: 20 mg Carbamazepine (Carbamazepine 400 Mg Tab.Er.12h) 400 mg PO BID@0900,1700 [facility] Last Admin: 06/30/23 17:24 Dose: 400 mg Carbidopa/Levodopa (Carbidopa-Levodopa 10-100 Mg 1 Each Tab) 1 each PO TID@0900,1400,1900 [facility] Last Admin: 06/30/23 18:11 Dose: 1 each Cyanocobalamin (Cyanocobalamin 500 Mcg Tab) 1,000 mcg PO DAILY [facility] Last Admin: 06/30/23 08:49 Dose: 1,000 mcg Divalproex Sodium (Divalproex 250 Mg Tablet.Dr) 250 mg PO DAILY@1400 [facility] Last Admin: 06/30/23 14:06 Dose: 250 mg Divalproex Sodium (Divalproex 500 Mg Tablet.) 500 mg PO BID@0900,1900 [facility] Last Admin: 06/30/23 18:11 Dose: 500 mg Folic Acid (Folic Acid 1 Mg Tab) 1 mg PO DAILY [facility] Last Admin: 06/30/23 08:50 Dose: 1 mg Gabapentin (Gabapentin 300 Mg Cap) 300 mg PO [facility] Last Admin: 06/30/23 19:34 Dose: 300 mg Lisinopril (Lisinopril 10 Mg Tab) 10 mg PO [facility] Last Admin: 06/30/23 19:34 Dose: 10 mg Naloxone HCl (Naloxone 0.4 Mg/Ml 1 Ml Vial) 0.2 mg IV Q2M PRN PRN Reason: Opioid Reversal Ondansetron HCl (Ondansetron 4 Mg/2 Ml Vial) 4 mg IVP Q8HR PRN PRN Reason: Nausea And Vomiting Primidone (Primidone 50 Mg Tab) 50 mg PO DAILY@1900 [facility] Last Admin: 06/30/23 18:14 Dose: 50 mg Propranolol HCl (Propranolol La 80 Mg Cap.Sa.24h) 160 mg PO DAILY@0900 [facility] Last Admin: 06/30/23 08:49 Dose: 160 mg Quetiapine Fumarate (Quetiapine 25 Mg Tab) 25 mg PO [facility] Last Admin: 06/30/23 19:34 Dose: 25 mg Ropinirole HCl (Ropinirole Hcl 0.25 Mg Tab) 0.25 mg PO BID@0900,1900 [facility] Last Admin: 06/30/23 18:14 Dose: 0.25 mg On examination: VITAL SIGNS: 97.4, 75, 18, 145-68, 93% room air GENERAL APPEARANCE: Sitting upon a chair, with coarse tremors and jerking movements. HEENT: Normal external appearance of nose and ear. Oral cavity normal EYES: Pupils equal. Conjunctiva normal. NECK: JVD not raised. Mass not palpable. RESPIRATORY: Respiratory effort normal. Lungs clear to auscultation. CARDIOVASCULAR: First and second sounds normal. No edema. ABDOMEN: Soft. Liver and spleen not palpable. No tenderness. No mass palpable. PSYCHIATRY: Alert and oriented x3. Mood and affect normal. NEUROLOGICAL: Jerking tremors. Slow speech. This finding difficulty with words. INVESTIGATIONS, reviewed in the clinical context: June 28: White count 5.01 hemoglobin 12.7 platelets 187 sodium 143 potassium 4.8 creatinine 1.0 CRP 2.2 vitamin B12 295 folate 6.4 valproic acid 65.0 carbamazepine 6.5 Computed tomography scan brain: Limited exam. Generalized degenerative changes. Assessment and plan * Progressive weakness with tremors , of movement disorder.-Parkinson-like disorder: Sinemet Inderal LA. Requip primidone * Seizure disorder-Tegretol, Depakote * Essential hypertension-lisinopril, propranolol * Hyperlipidemia-Lipitor * falls, from acute medical debility. * Thrombocytopenia-recovered -Peripheral neuropathy: Neurontin Discussed showcase maker. Looking for rehab placement.
[2023-07-01 04:01] VITALS: RESP 16
[2023-07-01 08:59] VITALS: BP 149/80; PULSE 61; TEMP 97.6
[2023-07-01] MEDS: PROPRANOLOL LA 80 MG CAP.SA.24H PO SCH (09:08)
[2023-07-01] MEDS: CARBIDOPA-LEVODOPA 10-100 MG 1 EACH TAB PO SCH (09:09)
[2023-07-01] MEDS: DIVALPROEX 500 MG TABLET.DR PO SCH (09:09)
[2023-07-01] MEDS: CYANOCOBALAMIN 500 MCG TAB PO SCH (09:10)
[2023-07-01] MEDS: FOLIC ACID 1 MG TAB PO SCH (09:10)
[2023-07-01] MEDS: carBAMazepine 400 MG TAB.ER.12H PO SCH (09:10)
--- NOTE | 2023-07-01 13:04 | P.DS ---
Providers Date of admission: 06/25/23 19:58 Expected date of discharge: 07/01/23 Attending physician: Joe Phoenix Consults: 06/26/23 13:31 Consult Physician Routine Consulting Provider: Janes Barkley Consult Reason/Comments: Worsening Parkinson evaluate and adjust regimen Do you want consulting provider notified?: Yes Primary care physician: [place] [facility] Course: Hospital course: * 73-year-old gentleman with past medical history significant for Parkinson's disease, dyslipidemia, hypertension presented to the emergency department after episode of worsening gait, weakness and increase in tremors. * Per chart review patient apparently had a fall but no injuries were noted. Patient was also noted to have episode of nausea and vomiting * Workup initiated in ER included a CT brain that was negative however limited study secondary to motion artifact * Chest x-ray and KUB was obtained which was negative * Blood work obtained showed essentially normal CBC, serum chemistry within normal limits as well * 06/27/23 : Patient seen and evaluated bedside, mentation has improved continue to have weakness, hematology sensitivity shows normal WBC count normal hemoglobin and platelet count dropped to 115. Serum chemistry essentially within normal limits CRP minimally elevated at 2.20. We will get physical therapy evaluation secondary to gait instability * 06/28/23: Patient seen and evaluated bedside. Hematology showed normal WBC count hemoglobin 12.7. Seen by neurology started on folate. Recommend outpatient follow-up with neurology. Will wait for physical therapy final recommendations will discharge disposition potential discharge within the next 24 hours 06/29/2023: I assumed care of the patient today. Sitting up in a chair. Eating lunch. Does feel his tremors are better. This tremor still present at baseline. Patient's family did also social sciences professor for rehab. Process started. Patient is being treated for movement disorder. Was seen by Dr. Danielle from neurology. No change in medications. He wants the patient to follow-up with his neurologist. 06/30/2023: Sitting up. Eating his meals. Tremors present. Discussed with case worker. Looking at rehab placement. 07/01/2023: Stable. Clinical course unchanged. Discussed with social sciences professor. Accepted at rehab. [facility] on the [place]. Patient to follow-up with his neurologist. Dr. Patricia Hector On examination: VITAL SIGNS: 97.6, 61, 16, 149/80, 95% room air GENERAL APPEARANCE: Up in a chair, with coarse tremors and jerking movements. HEENT: Normal external appearance of nose and ear. Oral cavity normal EYES: Pupils equal. Conjunctiva normal. NECK: JVD not raised. Mass not palpable. RESPIRATORY: Respiratory effort normal. Lungs clear to auscultation. CARDIOVASCULAR: First and second sounds normal. No edema. ABDOMEN: Soft. Liver and spleen not palpable. No tenderness. No mass palpable. PSYCHIATRY: Alert and oriented x3. Mood and affect normal. NEUROLOGICAL: Jerking tremors. Slow speech. This finding difficulty with words. INVESTIGATIONS, reviewed in the clinical context: June 28: White count 5.01 hemoglobin 12.7 platelets 187 sodium 143 potassium 4.8 creatinine 1.0 CRP 2.2 vitamin B12 295 folate 6.4 valproic acid 65.0 carbamazepine 6.5 Computed tomography scan brain: Limited exam. Generalized degenerative changes. Assessment and plan * Progressive weakness with tremors , of movement disorder.-Parkinson-like disorder: Sinemet Inderal LA. Requip primidone * Seizure disorder-Tegretol, Depakote * Essential hypertension-lisinopril, propranolol * Hyperlipidemia-Lipitor * falls, from acute medical debility. * Thrombocytopenia-recovered -Peripheral neuropathy: Neurontin Disposition: Rehab at [facility] on the [place] Plan - Discharge Summary New Discharge Prescriptions: New Folic Acid 1 mg PO DAILY #30 tab Cyanocobalamin [Vitamin B-12] 500 mcg PO DAILY #30 tab Continue lisinopriL [Zestril] 10 mg PO HS Gabapentin [Neurontin] 300 mg PO HS carBAMazepine [carBAMazepine ER] 400 mg PO BID@0900,1700 [facility] FUMARATE [SEROquel] 25 mg PO HS Atorvastatin [Lipitor] 20 mg PO HS Divalproex [Depakote] 250 mg PO DAILY@1400 Divalproex [Depakote] 500 mg PO BID@0900,1900 rOPINIRole HCL [Requip] 0.25 mg PO BID@0900,1900 Propranolol HCl [Propranolol HCl ER] 160 mg PO DAILY@0900 Primidone [Mysoline] 50 mg PO DAILY@1900 Carbidopa-Levodopa 10-100 mg [Sinemet 10-100 mg] 1 tab PO TID@0900,1400,1900 Ubidecarenone [Co Q-10] 400 mg PO HS Discharge Medication List Atorvastatin [Lipitor] 20 mg PO HS 06/25/23 [History] Carbidopa-Levodopa 10-100 mg [Sinemet 10-100 mg] 1 tab PO TID@0900,1400,1900 06/25/23 [History] Divalproex [Depakote] 250 mg PO DAILY@1400 06/25/23 [History] Divalproex [Depakote] 500 mg PO BID@0900,1900 06/25/23 [History] Gabapentin [Neurontin] 300 mg PO HS 06/25/23 [History] Primidone [Mysoline] 50 mg PO DAILY@1900 06/25/23 [History] Propranolol HCl [Propranolol HCl ER] 160 mg PO DAILY@0900 06/25/23 [History] QUEtiapine FUMARATE [SEROquel] 25 mg PO HS 06/25/23 [History] Ubidecarenone [Co Q-10] 400 mg PO HS 06/25/23 [History] carBAMazepine [carBAMazepine ER] 400 mg PO BID@0900,1700 06/25/23 [History] lisinopriL [Zestril] 10 mg PO HS 06/25/23 [History] rOPINIRole HCL [Requip] 0.25 mg PO BID@0900,1900 06/25/23 [History] Cyanocobalamin [Vitamin B-12] 500 mcg PO DAILY #30 tab 06/29/23 [Rx] Folic Acid 1 mg PO DAILY #30 tab 06/29/23 [Rx] Follow up Appointment(s)/Referral(s): Liberty Birch MD [REFERRING] - 07/09/23 10:00 am Medhat Sheffield DO [Primary Care Provider] - 1-2 days Discharge Disposition: TRANSFER TO SNF/ECF
== END 2023-07-01 11:45 ==
LOC: EC 14:06 → 6NMEDSUR 19:58
PROVIDERS: ADMIT Hospitalist; ATTEND Hospitalist
DX: R53.1 Weakness (principal); R27.0 Ataxia, unspecified; R25.1 Tremor, unspecified; E86.0 Dehydration; G40.909 Epilepsy, unspecified, not intractable, without status epilepticus; I10 Essential (primary) hypertension; E78.5 Hyperlipidemia, unspecified; D69.6 Thrombocytopenia, unspecified; G62.9 Polyneuropathy, unspecified; Z91.81 History of falling; Z79.899 Other long term (current) drug therapy
CPT/HCPCS: 96360; 96361 ×2; 96372; 99285; 36415; 93005; 97530; 97162; 97166; 80156; 80164; 80053; 80048; 82607; 82140; 82550; 82746; 83735; 84484; 85025; 85027 ×2; 86140; 71046; 74018; 70450; G0378 ×7; J3420

== ENCOUNTER → 2023-07-30 | Outpatient (CLI) | payer MEDICARE ==
--- NOTE | 2023-07-31 08:49 | NM ---
EXAMINATION TYPE: NM DatScan Brain SPECT DATE OF EXAM: 07/30/2023 COMPARISON: NONE HISTORY: Trauma TECHNIQUE: 10 drops of Lugol's solution was administered 1 hour prior to injection as a thyroid bloc isaac agent. After the administration of 4.66 mCi I-123 Ioflupane DaTscan. Images obtained 3 hours p ost injection. SPECT images of the brain were acquired with axial and coronal reconstructions. FINDINGS: The axial SPECT images demonstrate normal background activity. Accounting for head tilt, t here appears to be slight asymmetrically blunted comma-shaped appearance of the left corpus striatum. IMPRESSION: Slightly blunted striatal activity on the left may indicate early changes of idiopathic P arkinson's disease or Parkinsonian syndrome.
== END | disposition home or self-care (01) ==
LOC: RADNMMAIN 10:50
PROVIDERS: ATTEND Psychiatry & Neurology Neurology
DX: G25.0 Essential tremor (principal); R26.0 Ataxic gait; G20.C Parkinsonism, unspecified
CPT/HCPCS: 78803; A9584